=== PATIENT | female | born 1995 | race African-American/Black ===

== ENCOUNTER 2020-02-07 09:36 | Emergency (ER) | payer OTHER ==
[~2020-02-07] VITALS: Ht 167.6 cm; Wt 134.3 kg
[2020-02-07 09:51] VITALS: BP 101/74
[2020-02-07] MEDS ORDERED: AUGMENTIN 875-1 EAC1 ORAL (09:54)
[2020-02-07] MEDS ORDERED: Bacitracin Oint UD TOPIC ONE (10:00)
[2020-02-07 10:05] VITALS: BP 105/76
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
== END 2020-02-07 10:05 | disposition home or self-care (01) ==
LOC: EMR 10:00
DX: S41.151A Open bite of right upper arm, initial encounter (principal); L08.9 Local infection of the skin and subcutaneous tissue, unspecified; W50.3XXA Accidental bite by another person, initial encounter; Y92.9 Unspecified place or not applicable
CPT/HCPCS: 99282